=== PATIENT | female | born 1970 | race Asian ===

== ENCOUNTER → 2022-04-23 | Outpatient (CLI) | payer BC | END | disposition home or self-care (01) | LOC: MAMMO 07:47 | PROVIDERS: ATTEND Internal Medicine Geriatric Medicine | DX: Z12.31 Encounter for screening mammogram for malignant neoplasm of breast (principal) | CPT/HCPCS: 77067 ==

== ENCOUNTER → 2022-05-07 | Outpatient (CLI) | payer BC ==
[2022-05-07 08:19] LABS: BASOPHILS % 0.9 % (0.0-2.0); EOSINOPHILS % 2.7 % (0.0-5.0); HEMATOCRIT. 42.1 % (36.0-48.0); HEMOGLOBIN. 13.9 g/dL (12.0-16.0); LYMPHOCYTES % 42.1 % (20.0-50.0); MEAN CORPUSCULAR HEMOGLOBIN 29.1 pg (28.0-32.0); MEAN CORPUSCULAR VOLUME 88.3 fL (81.0-99.0); MONOCYTES % 7.6 % (2.0-8.0); NEUTROPHILS % 46.7 % (40.0-76.0); PLATELET 316 x1000/uL (130-400); RED BLOOD CELL COUNT 4.77 mill/uL (4.2-5.4); RED CELL DISTRIBUTION WIDTH 13.1 % (11.6-14.6)
[2022-05-07 08:35] LABS: CHLORIDE 103 mEq/L (98-107)
[2022-05-07 08:46] LABS: CLARITY URINE CLEAR (CLEAR); COLOR URINE YELLOW (YELLOW); KETONES URINE NEGATIVE (NEGATIVE); LEUKOCYTE ESTERASE URINE TRACE (NEGATIVE); NITRITE URINE NEGATIVE (NEGATIVE); OCCULT BLOOD URINE 1+ (NEGATIVE); PROTEIN URINE TRACE (NEGATIVE); SPECIFIC GRAVITY URINE 1.024 (1.005-1.030); UROBILINOGEN URINE 0.2 E.U./dL (0.2-1.0)
[2022-05-07 08:49] LABS: HDL CHOLESTEROL 57 mg/dL (40-59); LDL CHOLESTEROL 127 mg/dL (5-100); TOTAL IRON BINDING CAPACITY 354 ug/dL (250-450)
[2022-05-07 08:53] LABS: FERRITIN 93 ng/mL (10-291)
[2022-05-07 09:17] LABS: VITAMIN B12 SERUM 535 pg/mL (211-911)
[2022-05-07 09:45] LABS: HEPATITIS B SURFACE ANTIGEN NEGATIVE
[2022-05-07 11:16] LABS: FOLIC ACID (FOLATE) SERUM > 20.00 ng/mL (>5.38)
== END | disposition home or self-care (01) ==
LOC: LAB 07:35
PROVIDERS: ATTEND Internal Medicine Geriatric Medicine
DX: Z00.01 Encounter for general adult medical examination with abnormal findings (principal); Z13.220 Encounter for screening for lipoid disorders; Z13.0 Encounter for screening for diseases of the blood and blood-forming organs and certain disorders involving the immune mechanism; Z13.1 Encounter for screening for diabetes mellitus; Z13.29 Encounter for screening for other suspected endocrine disorder; N39.0 Urinary tract infection, site not specified
CPT/HCPCS: 36415; 80053; 80061; 81003; 82306; 82607; 82728; 82746; 83036; 83540; 83550; 84443; 85025; 86592; 86705; 86709; 86803; 87340

== ENCOUNTER → 2022-09-24 | Outpatient (CLI) | payer BC ==
[2022-09-24 08:25] LABS: CHLORIDE 107 mEq/L (98-107)
== END | disposition home or self-care (01) ==
LOC: LAB 07:43
PROVIDERS: ATTEND Internal Medicine Geriatric Medicine
DX: R73.09 Other abnormal glucose (principal)
CPT/HCPCS: 36415; 80053; 83036

== ENCOUNTER → 2023-02-20 | Outpatient (CLI) | payer BC ==
[2023-02-20 07:59] LABS: BASOPHILS % 0.4 % (0.0-2.0); HEMATOCRIT. 40.4 % (36.0-48.0); HEMOGLOBIN. 13.5 g/dL (12.0-16.0); MEAN CORPUSCULAR HEMOGLOBIN 29.4 pg (28.0-32.0); MEAN CORPUSCULAR HGB CONC 33.4 g/dL (31.0-37.0); MEAN PLATELET VOLUME 7.5 fl (7.4-10.4); MONOCYTES % 6.6 % (2.0-8.0); PLATELET 314 x1000/uL (130-400); RED BLOOD CELL COUNT 4.59 mill/uL (4.2-5.4); RED CELL DISTRIBUTION WIDTH 13.6 % (11.6-14.6); WHITE BLOOD COUNT 11.4 x1000/uL (4.5-11.0)
[2023-02-20 08:19] LABS: CLARITY URINE SL HAZY (CLEAR); COLOR URINE YELLOW (YELLOW); SPECIFIC GRAVITY URINE >=1.030 (1.005-1.030)
[2023-02-20 08:20] LABS: GLUCOSE URINE NEGATIVE (NEGATIVE); KETONES URINE NEGATIVE (NEGATIVE); LEUKOCYTE ESTERASE URINE NEGATIVE (NEGATIVE); NITRITE URINE NEGATIVE (NEGATIVE); OCCULT BLOOD URINE 1+ (NEGATIVE); PH URINE 5.5 (4.5-8.0); PROTEIN URINE NEGATIVE (NEGATIVE); UROBILINOGEN URINE 0.2 E.U./dL (0.2-1.0)
[2023-02-20 08:24] LABS: SQUAMOUS EPITHELIAL CELL URINE 3+ /lpf (RARE/1+)
[2023-02-20 08:25] LABS: BACTERIA URINE 1+; RBC URINE 0-2 /hpf (0-2); WBC URINE 0-2 /hpf (0-2); YEAST URINE NONE SEEN
[2023-02-20 09:03] LABS: ALANINE AMINOTRANSFERASE 33 IU/L (10-49); ALBUMIN 4.5 g/dL (3.2-4.8); ASPARTATE AMINOTRANSFERASE 27 IU/L (<34); BILIRUBIN TOTAL 0.5 mg/dL (0.1-1.0); CALCIUM 9.7 mg/dL (8.7-10.4); CARBON DIOXIDE 26 mEq/L (21-32); CHLORIDE 104 mEq/L (98-107); CHOLESTEROL 207 mg/dL (<200); CREATININE 0.5 mg/dL (0.6-1.0); GLUCOSE 93 mg/dL (70-105); HDL CHOLESTEROL 64 mg/dL (>65); IRON 86 ug/dL (50-170); LDL CHOLESTEROL 137 mg/dL (5-100); POTASSIUM 3.8 mEq/L (3.5-5.1); PROTEIN TOTAL 7.8 g/dL (6.0-8.3); SODIUM 140 mEq/L (136-145); THYROID STIMULATING HORMONE 3.88 uIU/mL (0.55-4.78); TOTAL IRON BINDING CAPACITY 304 ug/dl (250-425); TRIGLYCERIDE 165 mg/dL (0-150); UREA NITROGEN BLOOD 9 mg/dL (9-23)
[2023-02-20 12:18] LABS: FERRITIN 62 ng/mL (10-291); FOLIC ACID (FOLATE) SERUM > 20.00 ng/mL (>5.38); VITAMIN B12 SERUM 510 pg/mL (211-911)
== END | disposition home or self-care (01) ==
LOC: LAB 07:09
PROVIDERS: ATTEND Internal Medicine Geriatric Medicine
DX: Z00.01 Encounter for general adult medical examination with abnormal findings (principal); Z13.0 Encounter for screening for diseases of the blood and blood-forming organs and certain disorders involving the immune mechanism; N39.0 Urinary tract infection, site not specified; R73.03 Prediabetes; E78.49 Other hyperlipidemia
CPT/HCPCS: 36415; 80053; 80061; 81003; 82306; 82607; 82728; 82746; 83036; 83540; 83550; 84443; 85025; 86592

== ENCOUNTER → 2024-02-09 | Outpatient (CLI) | payer BC ==
[2024-02-09 08:31] LABS: EOSINOPHILS % 6.9 % (0.0-5.0); HEMATOCRIT. 42.2 % (36.0-48.0); HEMOGLOBIN. 14.1 g/dL (12.0-16.0); LYMPHOCYTES % 37.4 % (20.0-50.0); MEAN CORPUSCULAR HGB CONC 33.3 g/dL (31.0-37.0); MONOCYTES % 6.4 % (2.0-8.0); NEUTROPHILS % 48.3 % (40.0-76.0); PLATELET 324 x1000/uL (130-400); RED BLOOD CELL COUNT 4.68 mill/uL (4.2-5.4); RED CELL DISTRIBUTION WIDTH 13.1 % (11.6-14.6)
[2024-02-09 08:44] LABS: CLARITY URINE CLEAR (CLEAR); COLOR URINE YELLOW (YELLOW); GLUCOSE URINE NEGATIVE (NEGATIVE); KETONES URINE NEGATIVE (NEGATIVE); LEUKOCYTE ESTERASE URINE 1+ (NEGATIVE); NITRITE URINE NEGATIVE (NEGATIVE); OCCULT BLOOD URINE NEGATIVE (NEGATIVE); PROTEIN URINE NEGATIVE (NEGATIVE); SPECIFIC GRAVITY URINE 1.008 (1.005-1.030); UROBILINOGEN URINE 0.2 E.U./dL (0.2-1.0)
[2024-02-09 08:47] LABS: CARBON DIOXIDE 25 mEq/L (21-32); CHLORIDE 105 mEq/L (98-107); SODIUM 138 mEq/L (136-145)
[2024-02-09 08:48] LABS: CALCIUM 9.8 mg/dL (8.7-10.4)
[2024-02-09 08:52] LABS: CREATININE 0.6 mg/dL (0.6-1.0); GLUCOSE 125 mg/dL (70-105); IRON 89 ug/dL (50-170)
[2024-02-09 08:53] LABS: LDL CHOLESTEROL 118 mg/dL (5-100); TRIGLYCERIDE 145 mg/dL (0-150); UREA NITROGEN BLOOD 12 mg/dL (9-23)
[2024-02-09 08:54] LABS: ALANINE AMINOTRANSFERASE 22 IU/L (10-49); ALBUMIN 4.6 g/dL (3.2-4.8); ASPARTATE AMINOTRANSFERASE 21 IU/L (<34); TOTAL IRON BINDING CAPACITY 302 ug/dl (250-425)
[2024-02-09 08:55] LABS: BILIRUBIN TOTAL 0.4 mg/dL (0.1-1.0); CHOLESTEROL 202 mg/dL (<200); HDL CHOLESTEROL 62 mg/dL (>65); PROTEIN TOTAL 7.8 g/dL (6.0-8.3)
[2024-02-09 09:43] LABS: BACTERIA URINE TRACE; RBC URINE 0-2 /hpf (0-2); SQUAMOUS EPITHELIAL CELL URINE 2+ /lpf (RARE/1+); WBC URINE 0-2 /hpf (0-2); YEAST URINE NONE SEEN
== END | disposition home or self-care (01) ==
LOC: LAB 07:36
PROVIDERS: ATTEND Internal Medicine Geriatric Medicine
DX: Z00.01 Encounter for general adult medical examination with abnormal findings (principal)
CPT/HCPCS: 36415; 80053; 80061; 81003; 82306; 82607; 82746; 83540; 83550; 85025; 86592; 86705; 86709; 87340

== ENCOUNTER → 2024-02-25 | Outpatient (CLI) | payer BC | END | disposition home or self-care (01) | LOC: MAMMO 07:41 | PROVIDERS: ATTEND Internal Medicine Geriatric Medicine | DX: Z12.31 Encounter for screening mammogram for malignant neoplasm of breast (principal); R92.323 Mammographic fibroglandular density, bilateral breasts | CPT/HCPCS: 77063; 77067 ==

== ENCOUNTER → 2024-09-01 | Outpatient (CLI) | payer BC ==
[2024-09-01 08:03] LABS: CHLORIDE 106 mEq/L (98-107); POTASSIUM 4.3 mEq/L (3.5-5.1); SODIUM 139 mEq/L (136-145)
[2024-09-01 08:04] LABS: CARBON DIOXIDE 24 mEq/L (21-32)
[2024-09-01 08:05] LABS: CALCIUM 9.4 mg/dL (8.7-10.4)
[2024-09-01 08:09] LABS: CREATININE 0.6 mg/dL (0.6-1.0); GLUCOSE 140 mg/dL (70-105)
[2024-09-01 08:10] LABS: UREA NITROGEN BLOOD 12 mg/dL (9-23)
== END | disposition home or self-care (01) ==
LOC: LAB 07:31
PROVIDERS: ATTEND Internal Medicine Geriatric Medicine
DX: R73.9 Hyperglycemia, unspecified (principal)
CPT/HCPCS: 36415; 80048; 83036

== ENCOUNTER → 2024-12-06 | Outpatient (CLI) | payer BC ==
[2024-12-06 08:03] LABS: BASOPHILS % 0.8 % (0.0-2.0); EOSINOPHILS % 2.2 % (0.0-5.0); HEMATOCRIT. 39.8 % (36.0-48.0); HEMOGLOBIN. 13.1 g/dL (12.0-16.0); LYMPHOCYTES % 50.2 % (20.0-50.0); MEAN PLATELET VOLUME 7.7 fl (7.4-10.4); MONOCYTES % 6.5 % (2.0-8.0); NEUTROPHILS % 40.3 % (40.0-76.0); PLATELET 289 x1000/uL (130-400); RED BLOOD CELL COUNT 4.48 mill/uL (4.2-5.4); RED CELL DISTRIBUTION WIDTH 12.5 % (11.6-14.6)
[2024-12-06 08:22] LABS: CREATININE 0.6 mg/dL (0.6-1.0)
[2024-12-06 08:23] LABS: LDL CHOLESTEROL 137 mg/dL (5-100); TRIGLYCERIDE 277 mg/dL (0-150); UREA NITROGEN BLOOD 9 mg/dL (9-23)
[2024-12-06 08:24] LABS: ASPARTATE AMINOTRANSFERASE 21 IU/L (<34)
[2024-12-06 08:25] LABS: BILIRUBIN TOTAL 0.4 mg/dL (0.1-1.0); PROTEIN TOTAL 7.1 g/dL (6.0-8.3)
== END | disposition home or self-care (01) ==
LOC: LAB 07:15
PROVIDERS: ATTEND Internal Medicine Geriatric Medicine
DX: R73.03 Prediabetes (principal)
CPT/HCPCS: 36415; 80053; 80061; 83036; 85025

== ENCOUNTER → 2025-03-02 | Outpatient (CLI) | payer BC | END | disposition home or self-care (01) | LOC: MAMMO 07:46 | PROVIDERS: ATTEND Internal Medicine Geriatric Medicine | DX: Z12.31 Encounter for screening mammogram for malignant neoplasm of breast (principal); R92.1 Mammographic calcification found on diagnostic imaging of breast; R92.323 Mammographic fibroglandular density, bilateral breasts | CPT/HCPCS: 77063; 77067 ==